=== PATIENT | female | born 1970 | race Caucasian/White ===

== ENCOUNTER 2023-03-31 07:26 | Outpatient (CLI) | payer MEDICARE ==
[2023-03-31 08:15] LABS: #Basophils 0.1 10x3/uL (0.0-0.2); #Eosinphils 0.4 10x3/uL (0.0-0.5); #Monocytes 0.5 10x3/uL (0.0-1.1); %Basophils 0.6 % (0.0-2.0); %Eosinophils 4.1 % (0.0-6.0); %Lymphocytes 34.3 % (18.0-47.0); %Monocytes 5.3 % (0.0-10.0); %Neutrophils 55.4 % (40.0-75.0); Hematocrit 36.5 % (34.9-44.5); Hemoglobin 12.2 g/dL (12.0-15.5); Mean Corpuscular HGB CONC 33.4 g/dL (32.0-36.0); Mean Corpuscular Hemoglobin 31.1 pg (27.0-33.0); Mean Corpuscular Volume 93.1 fl (81.6-98.3); Mean Platelet Volume 9.4 fl (7.4-10.4); Platelet Count 290 10x3/uL (150-450); RBC Distribution Width 12.5 % (11.5-14.5); Red Blood Cell (RBC) Count 3.92 10x6/uL (3.90-5.03)
[2023-03-31 08:28] LABS: Anion Gap 15 mmol/L (10-20); BUN (Urea Nitrogen) 13 mg/dL (7.0-18.7); Calc. Creatinine Clearance 0 mL/min (70-130); Calcium 9.5 mg/dL (7.8-10.44); Carbon Dioxide 17 mmol/L (22-29); Chloride 109 mmol/L (98-107); Estimated GFR 87; Glucose 155 mg/dL (70-105); Potassium 4.2 mmol/L (3.5-5.1); Sodium 137 mmol/L (136-145)
== END 2023-03-31 07:27 | disposition home or self-care (01) ==
LOC: LABBT 07:26
PROVIDERS: ATTEND Surgery
DX: Z01.818 Encounter for other preprocedural examination (principal); E66.01 Morbid (severe) obesity due to excess calories
CPT/HCPCS: 80048; 85025; 93005; 93010

== ENCOUNTER 2023-03-31 08:00 | Inpatient (IN) | payer MEDICARE ==
[2023-03-31 08:15] VITALS: BMI 41.0
[2023-04-16] MEDS ORDERED: SUGAMMADEX SODIUM 200 MG/2 ML VIAL ONE (06:51)
[2023-04-16] MEDS ORDERED: fentaNYL PF 100 MCG/2 ML SYRINGE ONE (06:52)
[2023-04-16] MEDS ORDERED: EPINEPHrine 1 MG/ML VIAL ONE (06:53)
[2023-04-16] MEDS ORDERED: Bupivacaine 0.25% HCL 30 ML VIAL ONE (06:53)
[2023-04-16] MEDS ORDERED: Scopolamine 1 mg/72 hour Patch ONE (07:17)
[2023-04-16] MEDS ORDERED: Acetaminophen 500 MG TAB ONE (07:17)
[2023-04-16] MEDS ORDERED: CEFAZOLIN 2 GM VIAL ONE (07:25)
[2023-04-16] MEDS ORDERED: Sodium Chloride 0.9% 100 ML ONE (07:26)
[2023-04-16] MEDS ORDERED: Heparin 5,000 UNITS/ML VIAL ONE (07:29)
[2023-04-16] MEDS ORDERED: Ondansetron PF 4 MG/2 ML Vial ONE ×2 (07:46→09:29)
[2023-04-16] MEDS ORDERED: Dexamethasone 20 MG/5 ML VIAL ONE (07:46)
[2023-04-16] MEDS ORDERED: Lidocaine 1% PF 5 ML VIAL ONE (07:46)
[2023-04-16] MEDS ORDERED: Rocuronium Bromide 10 MG/ML (10ML VIAL) ONE (07:46)
[2023-04-16] MEDS ORDERED: PROPOFOL 200 MG/20 ML VIAL ONE (07:46)
[2023-04-16] MEDS ORDERED: diphenhydrAMINE 50 MG/ML VIAL IM PRN (09:19)
[2023-04-16] MEDS ORDERED: diphenhydrAMINE 25 MG CAP PO PRN (09:19)
[2023-04-16] MEDS ORDERED: Promethazine HCl 25 MG/ML VIAL IM PRN ×3 (09:19→09:55)
[2023-04-16] MEDS ORDERED: Ondansetron PF 4 MG/2 ML Vial IVP PRN ×2 (09:19→09:55)
[2023-04-16] MEDS ORDERED: Ondansetron HCl/PF 4 MG/2 ML Vial IVP PRN (09:19)
[2023-04-16] MEDS ORDERED: Naloxone HCl 0.4 mg/ml Vial IV PRN (09:19)
[2023-04-16] MEDS ORDERED: diphenhydrAMINE 50 MG/ML VIAL IVP PRN ×2 (09:19→09:55)
[2023-04-16] MEDS ORDERED: FENTANYL 500 MCG/10 ML VIAL 2,000 MCG in Sodium Chloride 0.9% 60 ML IV PRN (09:19)
[2023-04-16] MEDS ORDERED: fentaNYL 50 mcg/mL 1 mL Vial ONE ×3 (09:25→09:53)
[2023-04-16] MEDS ORDERED: Communication Order-Pharmacy FS SCH (09:30)
[2023-04-16] MEDS ORDERED: Dextrose 5% in Water 1,000 ML IV PRN (09:55)
[2023-04-16] MEDS ORDERED: Dextrose 50% Abboject 50 ML SYRINGE SLOW IVP PRN (09:55)
[2023-04-16] MEDS ORDERED: hydrALAZINE 20 MG/ML VIAL SLOW IVP PRN (09:55)
[2023-04-16] MEDS ORDERED: Ipratropium/Albuterol 3 ML NEB NEB PRN (09:55)
[2023-04-16] MEDS ORDERED: Glucagon 1 MG/ML KIT IM PRN (09:55)
[2023-04-16] MEDS ORDERED: Non-Formulary Item 1 EACH (Lithium Carbonate [Lithium Carbonate] 300 MG Tablet) PO SCH (15:00)
[2023-04-16] MEDS ORDERED: FLU VACC QS2023-24(6MOS UP)/PF 60 MCG/0.5 ML SYRINGE IM ONE (15:00)
[2023-04-16] MEDS: D5 1/2 NS w/20 mEq KCL 1,000 ML IV SCH ×2 (16:02→23:55)
[2023-04-16] MEDS: Lithium Carbonate 150 MG CAP PO SCH ×2 (16:03→20:03)
[2023-04-16] MEDS: Varenicline Tartrate 0.5 MG TAB PO SCH (20:03)
[2023-04-16] MEDS ORDERED: VARENICLINE TARTRATE 1 MG PO SCH (21:00)
[2023-04-16] MEDS ORDERED: QUEtiapine 25 MG TAB PO SCH (21:00)
[2023-04-17 05:34] LABS: #Eosinphils 0.1 thou/uL (0.0-0.7); #Monocytes 0.6 thou/uL (0.11-0.59); #Neutrophils 8.7 thou/uL (1.40-6.50); %Basophils 0.2 % (0.0-1.0); %Lymphocytes 26.9 % (21.0-51.0); %Monocytes 4.6 % (0.0-10.0); Hematocrit 32.1 % (36.0-47.0); Hemoglobin 10.9 g/dL (12.0-16.0); Mean Corpuscular Hemoglobin 32.2 pg (27.0-31.0); Mean Corpuscular Volume 94.7 fl (78.0-98.0); Mean Platelet Volume 9.4 fL (7.4-10.4); Platelet Count 292 10x3/uL (130-400); RBC Distribution Width 12.4 % (11.5-14.5); Red Blood Cell (RBC) Count 3.39 mill/uL (4.20-5.40)
[2023-04-17 05:53] LABS: Anion Gap 10 mmol/L (10-20); BUN (Urea Nitrogen) 8 mg/dL (7.0-18.7); Calc. Creatinine Clearance 128 mL/min (70-130); Calcium 9.7 mg/dL (7.8-10.44); Carbon Dioxide 24 mmol/L (22-29); Chloride 109 mmol/L (98-107); Estimated GFR 91; Glucose 129 mg/dL (70-105); Potassium 3.9 mmol/L (3.5-5.1); Sodium 139 mmol/L (136-145)
[2023-04-17] MEDS: D5 1/2 NS w/20 mEq KCL 1,000 ML IV SCH ×2 (06:55→09:05)
[2023-04-17] MEDS: Hydrocodone-Acetamin 15 ML UDCUP PO PRN ×2 (07:14→11:29)
[2023-04-17 08:03] VITALS: BP 135/82; TEMP 97.7
[2023-04-17] MEDS ORDERED: Citalopram 20 MG TAB PO SCH (09:00)
[2023-04-17] MEDS ORDERED: Pantoprazole 40 MG VIAL IVP SCH (09:00)
[2023-04-17] MEDS ORDERED: Non-Formulary Item 1 EACH (Citalopram Hydrobromide [Celexa] 40 MG Tablet) PO SCH (09:00)
[2023-04-17] MEDS: Varenicline Tartrate 0.5 MG TAB PO SCH (09:04)
[2023-04-17] MEDS: Lithium Carbonate 150 MG CAP PO SCH (09:04)
== END 2023-04-17 11:39 | disposition home or self-care (01) | DRG 621 ==
LOC: SURG A 04-16 06:21 → SJJU 04-16 11:46
PROVIDERS: ADMIT Surgery; ATTEND Surgery
PROC: 0DB64Z3 Excision of Stomach, Percutaneous Endoscopic Approach, Vertical (ICD-10-PCS; principal; 2023-04-16)
PROC: 8E0W4CZ Robotic Assisted Procedure of Trunk Region, Percutaneous Endoscopic Approach (ICD-10-PCS; 2023-04-16)
DX: E66.01 Morbid (severe) obesity due to excess calories (principal); Z68.41 Body mass index [BMI] 40.0-44.9, adult; F41.9 Anxiety disorder, unspecified; F32.A Depression, unspecified; E11.9 Type 2 diabetes mellitus without complications; Z88.5 Allergy status to narcotic agent; Z88.8 Allergy status to other drugs, medicaments and biological substances; Z98.890 Other specified postprocedural states
CPT/HCPCS: 36415; 80048; 85025; 88307; C9113; J0171; J1100; J1200; J1644; J1650; J2405; J2704; J3010; J3480; J3490; S0020